=== PATIENT | female | born 1995 | race Caucasian/White ===

== ENCOUNTER 2023-11-17 16:46 | Inpatient (IN) ==
[2023-11-17] MEDS: LABETALOL HCL 200 MG TAB PO STA (17:25)
[2023-11-17 17:41] LABS: Basophils # (auto) 0.05 K/uL (0.00-0.20); Basophils % (auto) 0.6 %; Eosinophils # (auto) 0.05 K/uL (0.00-0.50); Eosinophils % (auto) 0.6 %; Hematocrit (blood only) 30.8 % (37.0-47.0); Hemoglobin 10.2 g/dl (12.0-16.0); Immature Granulocytes # (auto) 0.03 K/uL (0.01-0.20); Immature Granulocytes % (auto) 0.4 %; Lymphocytes # (auto) 2.23 K/uL (1.20-3.40); Lymphocytes % (auto) 26.8 %; Mean Corpuscular Hemoglobin 27.2 pg (25.0-34.0); Mean Corpuscular Hgb Conc 33.1 g/dL (32.0-36.0); Mean Corpuscular Volume 82.1 fL (80.0-100.0); Mean Platelet Volume 10.3 fL (9.4-12.4); Monocytes % (auto) 7.2 %; Neutrophils # (auto) 5.37 K/uL (1.40-6.50); Neutrophils % (auto) 64.4 %; Platelet Count 300 K/uL (130-400); RDW Coefficient of Variation 14.6 % (11.5-14.5); RDW Standard Deviation 42.7 fL (36.4-46.3); Red Blood Count 3.75 M/uL (4.20-5.40); White Blood Count 8.33 K/ul (4.8-10.8)
[2023-11-17 18:01] LABS: Albumin Level 3.2 gm/dl (3.4-5.0); BUN Creatinine Ratio 22.2 (10-20); Bilirubin Direct 0.1 mg/dl (0-0.2); Bilirubin,Total 0.2 mg/dl (0.2-1.0); Calcium 8.5 mg/dl (8.6-10.3); Creatinine Clr Calc Pharmacy 161.5 ml/min; Est GFR (African American) 146.8 ml/min; Est GFR (Non-African American) 126.6 ml/min; Globulin 3.1 gm/dl (2.5-4.0); Potassium 3.9 mmol/L (3.5-5.1); Total Protein 6.3 gm/dl (6.0-8.3)
[2023-11-17 18:09] LABS: Creatinine Urine Random 70.6 mg/dl; Total Protein Urine Random 561.6 mg/dl (0-11.9)
--- NOTE | 2023-11-17 18:21 | History & Physical Report ---
Date of Service November 17, 2023 Assessment & Plan (1) 35 weeks gestation of : (2) IUGR (intrauterine growth restriction) affecting care of mother: (3) Insulin controlled gestational diabetes mellitus (GDM) during : (4) Chronic hypertension affecting : (5) resulting from in vitro fertilization: Plan BPs better now after po labetalol, dose increased but given at her typical dose timing. No sx. Labs ok but significant proteinuria. Known iugr now 3wks from last growth u/s. Today had normal dvp and uad but will get growth us via [facility]. FHTs categ 1 and pt asymptomatic. I will await more results and then likely need to see trend in bps as well to organize next steps. Suspect dx now is CHTN with superimposed preeclampsia. History of Present Illness Chief Complaint: elevated bp, chtn Primary Care Provider: Bhavna Willson, DO 28yo at 35 3/7 wks chantal presents to LD from office where she was seen for routine visit and noted to have elevated bps, in background of chtn on meds. Patient denies michel,visual change, n/v, or ruq pain. 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 She has known tn and saw pcp recently where her metoprolol was switched to labetalol 100mg po bid due to concern about elevated bp. She notes she felt wrong cuff was being used at that time and was evaluated further by us in LD and bps were more in range with her normal and she was sent home. That was 11/10/23. Since that time was seen in office and as noted today bps were 150s/100s with +3 protein and sent for evaluation here. Initial bp here was 177/85 but due to take her meds and so 200mg labetalol po given. She was put on monitor and since then bp now 140s/80s. She had labs drawn with nl plts, normal creat and lfts. She does have significant proteinuria however. PNC has been c/b 1. CHTN, on labetalol 100mg bid 2. GDM on insulin, taking bedtime nph 3. IUGR last growth 9% on 10/25. 4. IVF . PNL rh pos, ri, gbs not done yet OBH: g1 ENOLOGIST: infertility, paps normal. no stds Allergies Allergy/AdvReac Type Severity Reaction Status Date / Time No Known Allergies Allergy Verified 11/17/23 15:37 Home Medications Medication Instructions Recorded Confirmed Type prenat.vits,chantal,ydf-yhun-bidsr 1 tab PO DAILY 11/12/21 11/17/23 History aspirin 81 mg capsule 81 mg PO DAILY 05/23/23 11/17/23 History pen needle, diabetic 32 gauge x #50 ea 08/18/23 11/17/23 Rx 32" (BD Ultra-Fine Mary Beth Pen Needle) insulin NPH isoph U-100 human 100 16 unit subcut QPM 11/10/23 11/17/23 History unit/mL (3 mL) subcutaneous pen (Novolin N FlexPen) labetalol 100 mg tablet 100 mg PO BID #60 tabs 11/10/23 11/17/23 Rx Patient History Medical History (Updated 11/17/23 @ 17:01 by Adrianne Workman MD, FACOG) Chicken pox Use of letrozole (Femara) Anxiety Varicella vaccine Surgical History History of hysteroscopy H/O laparoscopy 10/2021 H/O wisdom tooth extraction Hx of dilation and curettage Family History Grandmother (Maternal) Myocardial infarction Hypertension Grandmother (Paternal) Breast cancer Mother Hypertension Thyroid disease Father Hypertension Grandfather (Maternal) Prostate cancer Denies family history of Ovarian cancer Colorectal cancer Social History Smoking Status: Never smoker Do You Dip or Chew Tobacco: No; Hx Alcohol Use: No Hx Substance Use: No Preferred Language: Swiss Communication Ability: Effective 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 Beliefs That Will Affect Care: None marital status: marital status details: Chapincito Ahn (28) [phone] Current Living Situation: Spouse Current Living Situation Comment: Lives with spouse, one dog current occupational status: employed 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 Other Information That Helps Us Care for You: No Feels Safe at Home: Yes Safety Concerns: Feels Safe At This Time Do you think of yourself as: straight/heterosexual Gender Identity: Female Assistive Devices: None Review of Systems as per Subjective / HPI Physical Exam Constitutional: WD/WN, vitals as above Respiratory: normal respiratory effort, lungs clear to auscultation Cardiovascular: Rate/Rhythm: regular rate and regular rhythm Gastrointestinal (Abdomen): soft gravid nt Musculoskeletal: tr edema nontender calves Neurologic: DTRs +3 patellar, no clonus Psychiatric: A+Ox3, euthymic affect Genitourinary: OB Exam Monitor Tracing: + external FHT monitor used, + external uterine monitor used (irreg, has felt 2 ctx), + category I and + normal FHT variability Results & Data Vital Signs (Past 12 Hours) Vital Signs Temp Pulse Resp BP 11/17/23 18:07 82 11/17/23 18:07 144/86 H 11/17/23 17:44 83 11/17/23 17:44 164/97 H 11/17/23 17:17 98.6 F 20 11/17/23 17:04 98.6 F 94 H 20 177/96 H 11/17/23 17:03 94 H 174/85 H Coding Level of Care Code None Diagnoses 35 weeks gestation of Z3A.35 IUGR (intrauterine growth restriction) affecting care of mother O36.5990 Insulin controlled gestational diabetes mellitus (GDM) during O24.414 Chronic hypertension affecting O10.919 resulting from in vitro fertilization O09.819
[2023-11-17] MEDS ORDERED: CALCIUM CARBONATE 500 MG CHEWABLE TAB PO PRN (21:06)
--- NOTE | 2023-11-17 21:06 | Obstetrical Progress Note ---
Date of Service November 17, 2023 Assessment & Plan (1) 35 weeks gestation of : (2) Chronic hypertension with superimposed preeclampsia: (3) IUGR (intrauterine growth restriction) affecting care of mother: (4) Insulin controlled gestational diabetes mellitus (GDM) during : (5) Chronic hypertension affecting : (6) resulting from in vitro fertilization: Plan Today bps are improved with po dose of labetalol. labs normal except elevated urine prot/creat ratio. IUGR is stable per growth u/s. [facility] [place] to discuss this pt circumstances for advice. Spoke to Dr. Espinoza. Given current bps, he does feel watching pt inpt and checking serial bps, plan am labs and see what develops is best approach given unclear if she is truly having worsening bp status. Also does not feel the current urine prot/creat ratio would change that plan. Will give steroids given ega and poss need for early delivery. Allow po, including bedtime snack and plan 1/2 of her nph tonight. Pt agreeable with this plan. Will plan nst in am, and monitoring only prn for now. Bps q2hr. Subjective pt continues to feel well. denies ctx, rom or vb. No michel or visual change. no ruq pain. Bps more in her normal range since 40min from labetalol dose today. Review of Systems Constitutional: as per Subjective / HPI Physical Exam Constitutional: WD/WN, vitals as above Genitourinary: OB Exam Monitor Tracing: + external FHT monitor used, + external uterine monitor used, + category I (reactive) and + normal FHT variability Results & Data Vital Signs (Past 12 Hours) Vital Signs Temp Pulse Resp BP 11/17/23 20:23 86 11/17/23 20:23 141/77 H 11/17/23 19:22 16 11/17/23 19:22 98.2 F 16 11/17/23 19:22 87 11/17/23 19:22 150/85 H 11/17/23 19:18 93 H 11/17/23 19:18 163/101 H 11/17/23 18:38 83 11/17/23 18:38 149/78 H 11/17/23 18:22 82 11/17/23 18:22 146/85 H 11/17/23 18:07 82 11/17/23 18:07 144/86 H 11/17/23 17:44 83 11/17/23 17:44 164/97 H 11/17/23 17:17 98.6 F 20 11/17/23 17:04 98.6 F 94 H 20 177/96 H 11/17/23 17:03 94 H 174/85 H PG Care Time/CCT Total # of Minutes Spent Total Time Spent with Patient: Total time spent is greater than 50% in coordination of care (as documented) at patient's floor/unit and/or counseling patient: Coding Level of Care Code 97223 SUB INP/OBS CARE 3/50MIN Diagnoses 35 weeks gestation of Z3A.35 Chronic hypertension with superimposed preeclampsia O11.9 IUGR (intrauterine growth restriction) affecting care of mother O36.5990 Insulin controlled gestational diabetes mellitus (GDM) during O24.414 Chronic hypertension affecting O10.919 resulting from in vitro fertilization O09.819
[2023-11-17] MEDS: BETAMETH SOD PHOS/ACETATE IA 6 MG/ML IM STA (21:22)
--- NOTE | 2023-11-17 21:24 | Ultrasound Report ---
Exam(s): US OB LIMITED EXAM: US , Limited CLINICAL HISTORY: Reason for exam: growth u/s. TECHNIQUE: Real-time limited ultrasound of the maternal uterus with image documentation. COMPARISON: No relevant prior studies available. FINDINGS: Fetus: Single live intrauterine . Position: Cephalic presentation. Heart rate: heart rate 139 bpm. Placenta: Placenta is located in the fundus. Amniotic fluid: Unremarkable. No oligohydramnios. Cervix: Cervical canal length is 2.7 cm. Other findings: Approximate ultrasound age is 33 weeks. IMPRESSION: Single live intrauterine in cephalic presentation Electronically signed by: Saurav Moran MD 11/17/23 21:23 PM
[2023-11-17] MEDS: INSULIN HUMAN NPH SC ONE (22:13)
[2023-11-18] MEDS ORDERED: OXYTOCIN 30 UNITS/NSS 30 UNITS/500 ML BAG IV PRN ×2 (04:22→15:03)
[2023-11-18] MEDS ORDERED: LIDOCAINE 1% LOCAL 20 ML VIAL INFIL PRN (04:22)
--- NOTE | 2023-11-18 04:37 | Obstetrical Progress Note ---
Date of Service November 18, 2023 Assessment & Plan (1) 35 weeks gestation of : (2) Chronic hypertension with superimposed preeclampsia: (3) IUGR (intrauterine growth restriction) affecting care of mother: (4) Insulin controlled gestational diabetes mellitus (GDM) during : (5) Chronic hypertension affecting : (6) resulting from in vitro fertilization: (7) PROM (premature rupture of membranes): (8) Encounter for induction of labor: Plan admit, iv, labs. currently with bps, suspect not severe features but will recheck labs now. plan labetalol po as scheduled. gbs obtained, trt in active labor as unknown. given too many ctx for cytotec will start pitocin. pt agreeable. Admission and Anticipated Discharge Date Admission Date: November 17, 2023 Subjective pt sitting comfortably in bed. no michel or visual change. no ruq pain. bps have been mostly stable until she got up to go to BR and had PROM, clear fluid. Then first bps were elevated and now more in range. given prom need to plan induction. no pain. Review of Systems Constitutional: as per Subjective / HPI Physical Exam Constitutional: WD/WN, vitals as above Genitourinary: OB Exam Monitor Tracing: + external FHT monitor used, + external uterine monitor used (3 per 10min. ), + category I (reactive) and + normal FHT variability Results & Data Vital Signs (Past 12 Hours) Vital Signs Temp Pulse Resp BP 11/18/23 04:26 105 H 149/87 H 11/18/23 04:03 99 H 173/96 H 11/18/23 03:16 94 H 161/87 H 11/18/23 03:01 98 H 172/94 H 11/18/23 03:00 98.2 F 11/18/23 01:24 97 H 127/71 11/17/23 23:54 89 11/17/23 23:54 132/76 11/17/23 22:24 93 H 11/17/23 22:24 120/59 L 11/17/23 20:23 86 11/17/23 20:23 141/77 H 11/17/23 19:22 16 11/17/23 19:22 98.2 F 16 11/17/23 19:22 87 11/17/23 19:22 150/85 H 11/17/23 19:18 93 H 11/17/23 19:18 163/101 H 11/17/23 18:38 83 11/17/23 18:38 149/78 H 11/17/23 18:22 82 11/17/23 18:22 146/85 H 11/17/23 18:07 82 11/17/23 18:07 144/86 H 11/17/23 17:44 83 11/17/23 17:44 164/97 H 11/17/23 17:17 98.6 F 20 11/17/23 17:04 98.6 F 94 H 20 177/96 H 11/17/23 17:03 94 H 174/85 H PG Care Time/CCT Total # of Minutes Spent Total Time Spent with Patient: Total time spent is greater than 50% in coordination of care (as documented) at patient's floor/unit and/or counseling patient: Coding Level of Care Code None Diagnoses 35 weeks gestation of Z3A.35 Chronic hypertension with superimposed preeclampsia O11.9 IUGR (intrauterine growth restriction) affecting care of mother O36.5990 Insulin controlled gestational diabetes mellitus (GDM) during O24.414 Chronic hypertension affecting O10.919 resulting from in vitro fertilization O09.819 PROM (premature rupture of membranes) O42.90 Encounter for induction of labor Z34.90
[2023-11-18] MEDS: OXYTOCIN 30 UNITS/NSS 30 UNITS/500 ML BAG IV PRN (04:52)
[2023-11-18] MEDS: LACTATED RINGER'S 1,000 ML IV PRN (04:52)
[2023-11-18 05:14] LABS: Basophils # (auto) 0.01 K/uL (0.00-0.20); Basophils % (auto) 0.1 %; Eosinophils # (auto) 0.01 K/uL (0.00-0.50); Eosinophils % (auto) 0.1 %; Hematocrit (blood only) 33.1 % (37.0-47.0); Hemoglobin 10.9 g/dl (12.0-16.0); Immature Granulocytes # (auto) 0.03 K/uL (0.01-0.20); Immature Granulocytes % (auto) 0.4 %; Lymphocytes % (auto) 11.6 %; Mean Corpuscular Hemoglobin 26.6 pg (25.0-34.0); Mean Corpuscular Hgb Conc 32.9 g/dL (32.0-36.0); Mean Corpuscular Volume 80.7 fL (80.0-100.0); Mean Platelet Volume 10.4 fL (9.4-12.4); Monocytes % (auto) 1.3 %; Neutrophils # (auto) 6.68 K/uL (1.40-6.50); Neutrophils % (auto) 86.5 %; Platelet Count 331 K/uL (130-400); RDW Coefficient of Variation 14.5 % (11.5-14.5); RDW Standard Deviation 42.6 fL (36.4-46.3); White Blood Count 7.73 K/ul (4.8-10.8)
[2023-11-18 05:29] LABS: Albumin Level 3.3 gm/dl (3.4-5.0); BUN Creatinine Ratio 19.4 (10-20); Bilirubin Direct 0.1 mg/dl (0-0.2); Bilirubin,Total 0.3 mg/dl (0.2-1.0); Calcium 8.6 mg/dl (8.6-10.3); Creatinine Clr Calc Pharmacy 140.6 ml/min; Est GFR (African American) 140.2 ml/min; Globulin 3.3 gm/dl (2.5-4.0); Potassium 4.3 mmol/L (3.5-5.1); Total Protein 6.6 gm/dl (6.0-8.3)
[2023-11-18] MEDS: LABETALOL HCL IV 5 MG/ML 20ML IV ONE (05:48)
[2023-11-18] MEDS: LABETALOL HCL IV 5 MG/ML 20ML IV STA (05:53)
[2023-11-18] MEDS: LABETALOL HCL 200 MG TAB PO ONE (06:40)
[2023-11-18] MEDS: PENICILLIN GK 6 MU in DEXTROSE 5% 250 ML IV STA (07:49)
--- NOTE | 2023-11-18 08:18 | Labor Progress Brief Note ---
Date of Service November 18, 2023 Subjective feeling pain with ctx. Assessment & Plan (1) Encounter for induction of labor: (2) 35 weeks gestation of : (3) Chronic hypertension affecting : (4) Insulin controlled gestational diabetes mellitus (GDM) during : (5) resulting from in vitro fertilization: (6) IUGR (intrauterine growth restriction) affecting care of mother: (7) Chronic hypertension with superimposed preeclampsia: (8) PROM (premature rupture of membranes): Plan induction begun, occas variables, if persist, may need to stop pit and reassess and/or place iupc. epidural when desires. Admission and Anticipated Discharge Date Admission Date: November 18, 2023 Physical Exam Constitutional: WD/WN, vitals as above Genitourinary: Manual OB Exam: + cervical dilation (2+), + cervical effacement 90% and + station -2 OB Exam Monitor Tracing: + external FHT monitor used, + external uterine monitor used (not traced well, pit at 5), + category II, + normal FHT variability and + variable decelerations Results & Data Vital Signs (Past 12 Hours) Vital Signs Temp Pulse Resp BP 11/18/23 07:54 96 H 150/83 H 11/18/23 07:40 96 H 145/83 H 11/18/23 07:10 98.1 F 95 H 18 166/90 H 11/18/23 06:25 96 H 153/90 H 11/18/23 06:14 96 H 153/90 H 11/18/23 05:34 102 H 175/85 H 11/18/23 05:31 103 H 168/100 H 11/18/23 05:00 16 11/18/23 05:00 98.1 F 16 11/18/23 04:26 105 H 149/87 H 11/18/23 04:03 99 H 173/96 H 11/18/23 03:16 94 H 161/87 H 11/18/23 03:01 98 H 172/94 H 11/18/23 03:00 98.2 F 11/18/23 01:24 97 H 127/71 11/17/23 23:54 89 11/17/23 23:54 132/76 11/17/23 22:24 93 H 11/17/23 22:24 120/59 L 11/17/23 20:23 86 11/17/23 20:23 141/77 H Coding Level of Care Code None Diagnoses Encounter for induction of labor Z34.90 35 weeks gestation of Z3A.35 Chronic hypertension affecting O10.919 Insulin controlled gestational diabetes mellitus (GDM) during O24.414 resulting from in vitro fertilization O09.819 IUGR (intrauterine growth restriction) affecting care of mother O36.5990 Chronic hypertension with superimposed preeclampsia O11.9 PROM (premature rupture of membranes) O42.90
--- NOTE | 2023-11-18 08:42 | Anesthesiology Consultation ---
Date of Service November 18, 2023 Assessment & Plan Chart Review Chart Review: Acceptable Risk for Labor Epidural Consults Requested none ASA ASA3 Proposed Anesthesia Anesthesia Type: Labor Epidural Risk / Benefits Reviewed With: PT / POA / Parent / Guardian, Accepts Plan and Informed Consent Obtained History Height/Weight Height: 5 ft 1 in Weight: 96.162 kg Allergies Allergy/AdvReac Type Severity Reaction Status Date / Time No Known Allergies Allergy Verified 11/17/23 15:37 Medications Home Medications Medication Instructions Recorded Confirmed Last Taken prenat.vits,chantal,ewz-ktsu-svlit 1 tab PO DAILY 11/12/21 11/17/23 11/17/23 07:00 aspirin 81 mg capsule 81 mg PO DAILY 05/23/23 11/17/23 11/17/23 07:00 pen needle, diabetic 32 gauge x #50 ea 08/18/23 11/17/23 Unknown " (BD Ultra-Fine Mary Beth Pen Needle) insulin NPH isoph U-100 human 100 16 unit subcut QPM 11/10/23 11/17/23 11/16/23 21:00 unit/mL (3 mL) subcutaneous pen (Novolin N FlexPen) labetalol 100 mg tablet 100 mg PO BID #60 tabs 11/10/23 11/17/23 11/17/23 07:00 Active Medications Generic Name Dose Route Start Last Admin Trade Name Freq PRN Reason Stop Dose Admin Lactated Ringer's 1,000 mls @ 125 mls/hr 11/18/23 04:22 11/18/23 06:58 Lr IV 11/20/23 04:21 125 mls/hr .Q8H PRN Infusion L&D Protocol Protocol Oxytocin 30 units in 500 mls @ 5 mls/hr 11/18/23 04:22 11/18/23 07:02 Pitocin 30 Units/Nss IV 11/20/23 04:21 0.3 units/hr .Q24H PRN 5 mls/hr Labor Induction/Augmentation Titration Protocol 0.3 UNITS/HR Insulin Human NPH 8 units 11/18/23 22:00 11/17/23 22:13 Insulin Human Nph SC 11/18/23 22:01 8 units ONCE ONE Administration Past Medical History Medical History Chicken pox Use of letrozole (Femara) Anxiety Varicella vaccine Exercise / Class Metabolic Activity II 4-5 Yardwork/Stairs/Walk up hill Past Family History Family History Grandmother (Maternal) Myocardial infarction Hypertension Grandmother (Paternal) Breast cancer Mother Hypertension Thyroid disease Father Hypertension Grandfather (Maternal) Prostate cancer Denies family history of Ovarian cancer Colorectal cancer Past Surgical History Surgical History History of hysteroscopy H/O laparoscopy 10/2021 H/O wisdom tooth extraction Hx of dilation and curettage Past Anesthesia History No Hx of Anesthesia Complications and No Family Hx of Anesthesia Complications History of PONV No Hx of PONV and No Hx of Motion Sickness Social History Smoking Status: Never smoker Do You Dip or Chew Tobacco: No Hx Alcohol Use: No Hx Substance Use: No substance use type: does not use Physical Exam Vital Signs Last Vital Signs Temp 98.1 F 11/18/23 07:10 Pulse 96 H 11/18/23 07:54 Resp 18 11/18/23 07:10 BP 150/83 H 11/18/23 07:54 ENMT Mouth: no dentition abnormality Thyromental Distance: > or= 3.5 Finger Breadths Mallampati Class: II Neck normal visual inspection Respiratory normal respiratory effort Auscultation: lungs clear to auscultation bilaterally Cardiovascular Rate/Rhythm: regular rate and regular rhythm Testing Laboratory Results 11/18/23 04:35 11/18/23 04:35 Blood Type A Positive 11/18/23 04:41 Antibody Screen NEGATIVE 11/18/23 04:41 11/18/23 11/18/23 11/17/23 07:45 04:45 20:39 POC Glucose 109 H 109 H 88
[2023-11-18] MEDS ORDERED: NALOXONE HCL 0.4 MG/1 ML VIAL/CARP IV PRN (09:00)
[2023-11-18] MEDS ORDERED: NALBUPHINE HCL INJ 10 MG/ML AMP IV PRN (09:00)
[2023-11-18] MEDS ORDERED: NALOXONE HCL 1 MG in SODIUM CHLORIDE 0.9% 1,000 ML IV PRN (09:00)
[2023-11-18] MEDS ORDERED: fentANYL 2 MCG/ML BUPIVacaine 0.125%-NSS 100ML BAG EPI PRN (09:00)
[2023-11-18] MEDS ORDERED: ONDANSETRON INJ 2 MG/ML 2 ML VIAL IV PRN (09:00)
[2023-11-18] MEDS ORDERED: diphenhydrAMINE 50 MG/ML VIAL IV PRN (09:00)
[2023-11-18] MEDS ORDERED: ePHEDrine sulfate 50 MG/ML AMP IV PRN (09:00)
[2023-11-18] MEDS ORDERED: ROPIVACAINE 0.5% PF 5 MG/ML 20 ML VIAL EPI PRN (09:00)
[2023-11-18] MEDS ORDERED: LIDOCAINE 2% MPF LOCAL 5 ML VIAL EPI PRN (09:00)
[2023-11-18] MEDS ORDERED: SODIUM CHLORIDE 0.9% PF INJ 10 ML VIAL EPI PRN (09:00)
[2023-11-18] MEDS: BUPIVACAINE 0.25% PF 30 ML VIAL ONE (09:01)
[2023-11-18] MEDS: LIDOCAINE 2%/EPINEPHRINE 1:200,000 20 ML PF ONE (09:01)
[2023-11-18] MEDS: fentANYL 2 MCG/ML BUPIVacaine 0.125%-NSS 100ML BAG ONE (09:02)
[2023-11-18] MEDS: fentaNYL citrate PF 100 MCG/2 ML VIAL ONE (09:07)
[2023-11-18] MEDS: SODIUM CHLORIDE 0.9% PF INJ 10 ML VIAL ONE (09:07)
[2023-11-18] MEDS: ePHEDrine sulfate 50 MG/ML AMP ONE (09:07)
--- NOTE | 2023-11-18 09:46 | Labor Progress Brief Note ---
Date of Service November 18, 2023 Subjective Introduced myself earlier as taking over after just having received epidural, present for check and discuss iupc. Comfortable w /epidural Assessment & Plan (1) Encounter for induction of labor: (2) 35 weeks gestation of : (3) Chronic hypertension affecting : (4) Insulin controlled gestational diabetes mellitus (GDM) during : (5) resulting from in vitro fertilization: (6) IUGR (intrauterine growth restriction) affecting care of mother: (7) Chronic hypertension with superimposed preeclampsia: (8) PROM (premature rupture of membranes): Plan 28 yo at 35 4/7 wga w/ chtn w/ superimposed PET w/o SF, FGR, A2GDM, PPROM being induced -Mild range BPs, had intermittent severes w/ mild rechecks earlier so not started on magnesium by prior provider. BPs remain mild currently so will continue to monitor, did discuss potential need for mag if need. Will continue labetalol 200 q12, labs this AM were normal -fetus cat 2 but reassuring -PPROM - pit at 5, iupc placed due to variables to monitor and possible amnioinfusion if indicated. Will monitor -A2GDM - q2hr bg, q1 in active -GBS unk, pcn started -epidural in place -peds is aware of multiple pni, s/p dose 1 of bmz last evening Admission and Anticipated Discharge Date Admission Date: November 18, 2023 Physical Exam Genitourinary: Manual OB Exam: + cervical dilation 2 cm, + cervical effacement 70% and + station -2 OB Exam Monitor Tracing: + external FHT monitor used, + intra-uterine pressure catheter used (placed, q5) and + category II (125- 130/mod/+accel/+intermittent variables) Results & Data Vital Signs (Past 12 Hours) Vital Signs Temp Pulse Resp BP Pulse Ox 11/18/23 09:38 98 H 100 11/18/23 09:33 116 H 100 11/18/23 09:28 102 H 100 11/18/23 09:26 93 H 138/70 11/18/23 09:23 93 H 99 11/18/23 09:20 96 H 135/74 11/18/23 09:18 99 H 98 11/18/23 09:15 95 H 133/73 11/18/23 09:13 100 H 99 11/18/23 09:09 101 H 138/74 11/18/23 09:08 100 H 99 11/18/23 09:07 99 H 139/75 11/18/23 09:05 99 H 136/79 11/18/23 09:03 100 11/18/23 09:03 101 H 11/18/23 09:03 100 H 140/81 11/18/23 09:01 93 H 143/80 H 11/18/23 08:59 101 H 146/85 H 11/18/23 08:58 102 H 98 11/18/23 08:57 97 H 154/90 H 11/18/23 08:55 106 H 152/98 H 11/18/23 08:53 103 H 151/90 H 99 11/18/23 08:48 114 H 99 11/18/23 08:43 112 H 100 11/18/23 08:39 111 H 145/84 H 11/18/23 07:54 96 H 150/83 H 11/18/23 07:40 96 H 145/83 H 11/18/23 07:10 98.1 F 95 H 18 166/90 H 11/18/23 06:25 96 H 153/90 H 11/18/23 06:14 96 H 153/90 H 11/18/23 05:34 102 H 175/85 H 11/18/23 05:31 103 H 168/100 H 11/18/23 05:00 16 11/18/23 05:00 98.1 F 16 11/18/23 04:26 105 H 149/87 H 11/18/23 04:03 99 H 173/96 H 11/18/23 03:16 94 H 161/87 H 11/18/23 03:01 98 H 172/94 H 11/18/23 03:00 98.2 F 11/18/23 01:24 97 H 127/71 11/17/23 23:54 89 11/17/23 23:54 132/76 11/17/23 22:24 93 H 11/17/23 22:24 120/59 L Coding Level of Care Code None Diagnoses Encounter for induction of labor Z34.90 35 weeks gestation of Z3A.35 Chronic hypertension affecting O10.919 Insulin controlled gestational diabetes mellitus (GDM) during O24.414 resulting from in vitro fertilization O09.819 IUGR (intrauterine growth restriction) affecting care of mother O36.5990 Chronic hypertension with superimposed preeclampsia O11.9 PROM (premature rupture of membranes) O42.90
[2023-11-18] MEDS: BUPIVACAINE 0.25% PF 30 ML VIAL EPI STA (10:48)
[2023-11-18] MEDS: LIDOCAINE 2%/EPINEPHRINE 1:200,000 20 ML PF EPI STA (10:48)
[2023-11-18] MEDS: fentaNYL citrate PF 100 MCG/2 ML VIAL EPI STA (10:48)
[2023-11-18] MEDS: SODIUM CHLORIDE 0.9% PF INJ 10 ML VIAL EPI STA (10:48)
[2023-11-18] MEDS: PENICILLIN GK 3 MU in DEXTROSE 5% 100 ML IV PRN (11:29)
[2023-11-18] MEDS: fentaNYL citrate PF 100 MCG/2 ML VIAL EPI PRN (13:09)
[2023-11-18] MEDS: BUPIVACAINE 0.25% PF 30 ML VIAL EPI PRN (13:09)
--- NOTE | 2023-11-18 13:19 | Anesthesia Procedure Note ---
Date of Service November 18, 2023 Anesthesia Epidural Re-Dose Vital Signs Temp Pulse Resp BP Pulse Ox 98.2 F 101 H 20 157/93 H 98 11/18/23 09:44 11/18/23 13:14 11/18/23 11:59 11/18/23 13:14 11/18/23 13:13 Notes Pain Intensity: 7 Dilatation (cm): 5.5 Effacement (%): 90 Called by nursing to evaluate epidural as the patient is having increased pain. The epidural was re-dosed with the following medications after negative aspiration of the epidural catheter for CSF/HEME. 4mL of 0.25% Bupivacaine and 50 mcg fentanyl After Epidural Re-Dose Mental Status: alert / awake / arousable Pain: improving with treatment Airway Patency, RR, SpO2: stable & adequate BP & HR: stable & adequate
[2023-11-18] MEDS ORDERED: ACETAMINOPHEN 325 MG TAB PO PRN (15:03)
[2023-11-18] MEDS ORDERED: HYDROCORTISONE ACETATE 25 MG SUPP PR PRN (15:03)
[2023-11-18] MEDS ORDERED: IBUPROFEN 600 MG TAB PO PRN (15:03)
[2023-11-18] MEDS ORDERED: bisacodyL 10 MG SUPP PR PRN (15:03)
--- NOTE | 2023-11-18 15:04 | Delivery Summary ---
Vaginal Delivery Summary Date of Service November 18, 2023 Vaginal Delivery Summary and 1st Degree LAC PREOPERATIVE DIAGNOSIS: 1. Single intrauterine at 35 4/7 wga 2. Chronic hypertension with superimposed pre-eclampsia without severe features 3. growth restriction 4. A2GDM 5. IVF 6. premature rupture of membranes POSTOPERATIVE DIAGNOSIS: 1. Single intrauterine at 35 4/7 wga 2. Chronic hypertension with superimposed pre-eclampsia without severe features 3. growth restriction 4. A2GDM 5. IVF 6. premature rupture of membranes 7. Delivered PROCEDURE: 1. Normal spontaneous vaginal delivery. SURGEON: Annia Olivo MD ANESTHESIA: Epidural. QUANTITATIVE BLOOD LOSS: 65 mL FLUIDS: Continuous LR. URINE OUTPUT: Not measured. COMPLICATIONS: None. CONDITION: Stable. INDICATIONS: 28 yo at 35 4/7 wga presented last evening for evaluation due to elevated BPs and protein in the setting of known chronic hypertension. She was given a higher dose of her home labetalol to 200mg which did improve her BPs. Labs were drawn and wnl except UP:C which was 8. BPs remained mild range and she was asymptomatic. US confirmed stable FGR. Case was discussed with [facility] who recommended BP monitoring overnight and administration of betamethasone. She received one dose of betamethasone and later that evening experienced PPROM. Given this she was recommended for induction. Induction was begun with pitocin and she received an epidural. Variable decelerations were noted so IUPC placed and amnioinfusion given. This improved tracing and she progressed to complete and desired to push. FINDINGS: A viable female , weight 4lb 2oz with Apgars of 9 and 9 at 1 and 5 minutes respectively. SPECIMEN: Cord blood, placenta OPERATIVE REPORT: The patient progressed to 10 cm, 100% effaced and +2 station, pushed over intact perineum with anesthesia to deliver a viable female infant, weight and Apgars as above. Head of delivered in ALYSSA position. Body cord was noted. Body and shoulders were delivered without difficulty. was delivered to maternal abdomen and nursing staff. Delayed cord clamping was performed for 60 seconds. Cord was clamped and cut. Cord blood was obtained. Placenta delivered spontaneously intact with 3-vessel cord. IV oxytocin and fundal massage were given for excellent hemostasis. Vagina, cervix, perineum, and placenta were inspected. A first degree laceration was repaired using 3-0 vicryl. Hemostatic bilateral labial abrasions were noted. There was excellent hemostasis. Sponge and needle counts correct x2. No sponges were left behind. Mother and stable in immediate period. [facility] [place] Vaginal Delivery Codes: 36828 global code for the antepartum, delivery, and post- Delivery Type Details: and 1st Degree LAC
--- NOTE | 2023-11-18 15:32 | Anesthesia Procedure Note ---
Date of Service November 18, 2023 Anesthesia Post Epidural Note Vital Signs Vital Signs: Temp Pulse Resp BP Pulse Ox 98.2 F 125 H 20 139/78 89 L 11/18/23 13:11 11/18/23 15:29 11/18/23 14:59 11/18/23 15:29 11/18/23 14:29 Pain Intensity Bilateral Anterior Abdomen: Pain Intensity: 0 Notes Mental Status: alert / awake / arousable and participated in evaluation Nausea / Vomiting: adequately controlled Pain: adequately controlled Airway Patency, RR, SpO2: stable & adequate BP & HR: stable & adequate Hydration State: stable & adequate Neuraxial Anesthesia: was administered and sensory block is resolving Anesthetic Complications: no major complications apparent and Pt Satisfied with anesthetic care Epidural: Removed without complications and With tip intact
[2023-11-18] MEDS: MEASLES, MUMPS & RUBELLA VIRUS VACCINE (MMR) 0.5ML VIAL SQ ONE (17:05)
[2023-11-18] MEDS: DIPHTHER/TETAN/PERTUS Vaccine (Tdap, Adol/Adult) 0.5mL IM ONE (17:05)
[2023-11-18] MEDS: LABETALOL HCL 200 MG TAB PO SCH (20:40)
[2023-11-18] MEDS: DOCUSATE SODIUM 100 MG CAP PO SCH (20:40)
[2023-11-18] MEDS: BENZOCAINE 20% SPRY 85 APPLN/85 GM CAN EXT PRN (20:41)
[2023-11-18] MEDS ORDERED: BETAMETH SOD PHOS/ACETATE IA 6 MG/ML IM ONE (21:00)
[2023-11-19] MEDS: FERROUS SULFATE 325 MG TAB PO SCH (08:03)
[2023-11-19] MEDS: PRENATAL VITAMIN 1 TAB PO SCH (08:03)
--- NOTE | 2023-11-19 08:17 | Obstetrical Progress Note ---
Date of Service November 19, 2023 Assessment & Plan (1) Encounter for care and examination after delivery: (2) Chronic hypertension with superimposed preeclampsia: (3) IUGR (intrauterine growth restriction) affecting care of mother: (4) Insulin controlled gestational diabetes mellitus (GDM) during : (5) resulting from in vitro fertilization: Plan 28 yo PP1 from c/b cHTN w/ superimposed PET w/o SF, FGR, A2GDM, doing well -Meeting all pp milestones. Still on labetalol 200mg po bid, remain primarily in 140s but aware we may need to increase -A+/rubella nonimm - mmr ordered/ -f/u 6 weeks for appt, continue rout care Subjective Ambulation: ambulating normally Voiding: no voiding problems Passing Gas:: Yes Diet Tolerance:: regular diet Lochia:: Small Feeding Type:: breast feeding Pain well managed with medication Review of Systems Denies fevers, chills, n/v, WONG, CP, SOB Physical Exam Constitutional WD/WN, vitals as above no acute distress Respiratory normal respiratory effort, lungs clear to auscultation Cardiovascular RRR, no murmur, no edema Gastrointestinal (Abdomen) Percussion/Palpation: abdomen soft; abdomen nontender fundus firm at umbilicus and NT Musculoskeletal BLE symmetric, nonerythematous, nontender Results & Data Vital Signs (Past 12 Hours) Vital Signs Temp Pulse Resp BP Pulse Ox O2 Del Method 11/19/23 03:17 98.2 F 99 H 18 149/82 H 100 Room Air 11/18/23 23:10 98.2 F 96 H 18 149/94 H 99 Room Air 11/18/23 20:30 98.6 F 107 H 18 151/93 H 98 Room Air
[2023-11-19] MEDS: bisacodyL 5 MG TABEC PO SCH (20:40)
[2023-11-19 22:30] VITALS: TEMP 98.2
--- NOTE | 2023-11-20 05:20 | Obstetrical Progress Note ---
Date of Service November 20, 2023 Assessment & Plan (1) Encounter for care and examination after delivery: (2) PROM (premature rupture of membranes): (3) IUGR (intrauterine growth restriction) affecting care of mother: (4) Insulin controlled gestational diabetes mellitus (GDM) during : (5) Chronic hypertension affecting : Plan Pt is 28 yo post- day 2 s/p at 35w3d. complicated by PPROM, A2GDM, FGR Encourage ambulation and breast feeding Ibuprofen PRN for pain control Monitor vitals and Hgb Continue Labetalol 200mg q12h Upon hospital discharge, follow up with Dr. Olivo in 3-4 days for blood pressure check Admission and Anticipated Discharge Date Admission Date: November 18, 2023 Supervising Physician Co-Signing Physician Notes Resident Physician Supervision Note: I interviewed and examined the patient. Discussed with Dr. Barnett and agree with findings and plan as documented in the note. Any exceptions or clarifications are listed here: PP2 s/p c/b cHTN w/ superimposed pet w/o sf, curently on labetalol 200mg q12. Doing well, no s/s PET. VSS wnl, exam benign. Can dc to nest as baby still working on bg, task sent for bp check this week. PET s/s reviewed Documented By: Annia Olivo MD Subjective Pt is 28 yo post- day 2 s/p at 35w3d. complicated by PPROM, A2GDM, FGR Ambulation:In and out of room Voiding:voiding normally Passing gas: yes BM:yes Diet tolerance:regular diet Lochia:bloody, small clots Feeding type: breast Current pain level: 0/10 without pain meds Resting comfortably this morning in NAD. Denies WONG, CP, SOB, N/V/D, LE pain/swelling. Review of Systems Review of Systems: As per HPI Physical Exam Constitutional: WD/WN, vitals as above Respiratory: normal respiratory effort, lungs clear to auscultation Cardiovascular: Rate/Rhythm: regular rate and regular rhythm Heart Sounds: + murmur (systolic) Extremities: + edema (bilateral ankles and feet) Gastrointestinal (Abdomen): normal bowel sounds, soft, nontender, no hepatosplenomegaly Uterine fundus firm and at 2m below umbilicus Neurologic: PERRL, EOMI, accommodation nl, no face palsy, no dysarthria Moving all 4 extremities on command Psychiatric: A+Ox3, euthymic affect Results & Data Vital Signs (Past 12 Hours) Vital Signs Temp Pulse Resp BP Pulse Ox O2 Del Method 11/19/23 22:30 36.8 C 89 18 133/82 97 Room Air 11/19/23 20:39 36.9 C 94 H 18 129/88 99 Room Air Resident Activity Tracking Resident Involvement: Resident Care Provided Care Provided: Adult Hospital Medicine
[2023-11-20 10:11] VITALS: RESP 16
[2023-11-20 15:42] VITALS: BP 136/86; PULSE 96; O2SAT 97
--- NOTE | 2023-11-21 06:27 | Coding Query ---
CODING QUERY To promote full compliance with coding requirements relating to patient care, provider participation is requested in all cases of industrial fabric cutter uncertainty. Please assist us with the question(s) below: Coding Question(s): Per the delivery summary, "Vagina, cervix, perineum, and placenta were inspected. A first degree laceration was repaired using 3-0 vicryl." Can you please specify the site of the patient's laceration? Laceration is: perineal Physician's Response(s): Thank you Arianne Romero Principal Diagnosis: "that condition established after study, to be chiefly responsible for occasioning the admission of the patient to the hospital for care." Co-Existing Principal Diagnosis: "when two or more diagnoses equally meet the criteria for principal diagnosis as determined by the circumstances of admission, diagnostic work up, and/or therapy provided, and the Alphabetic Index, Tabular List, or another coding guideline does not provide sequencing direction, any one of the diagnoses may be sequenced first." "When the physician has documented what appears to be a current diagnosis in the body of the record, but has not included the diagnosis in the final diagnostic statement, the physician should be asked whether the diagnosis should be added." (Source [facility]oding [facility] 2 QTR90. p3-4) VALERIE
== END 2023-11-20 17:23 | disposition home or self-care (01) | DRG 807 ==
LOC: OPB 16:46 → 4S1 16:46 → 4E2 11-18 17:11